=== PATIENT | male | born 1960 | race Caucasian/White ===

== ENCOUNTER → 2018-09-30 | Outpatient (CLI) | payer OTHER, SELFPAY ==
--- NOTE | 2018-10-04 02:31 | PCVCIMAG ---
APPROVED REPORT Study performed: 09/30/2018 15:45:09 Exam: Stress Echocardiogram Indication: Chest pain Patient Location: Echo lab Stress Nurse: Akilah Pringle RN Status: routine Ht: 5 ft 5 in HR: 67 bpm BP: 126/82 mmHg Rhythm: NSR Medical History Exercise History: Physically active Procedure The patient underwent an Exercise Stress Test using the [place] Protocol. Blood pressure, heart rate, and EKG were monitored. An Echocardiogram was performed by claim technician in four stages in quad fashion. At peak stress, four selected images were obtained and placed side by side with resting images for comparison. Stress Test Details Stress Test: Exercise stress testing was performed using a [place] protocol. HR Resting HR: 67 bpmMax Heart Rate (APMHR): 164 bpm Max HR Achieved: 184 bpmTarget HR (85% APMHR): 139 bpm % of APMHR: 112 Recovery HR: 104 bpm HR response to stress: Normal HR response to stress BP Resting BP: 126/82 mmHg Max BP: 164/80 mmHg Recovery BP: 142/70 mmHg BP response to stress: Normal blood pressure response to stress. ECG Resting ECG: Sinus Rhythm Stress ECG: Sinus Rhythm Arrhythmia: Occasional PVC's Recovery ECG: Sinus Rhythm Clinical Reason for Termination: Maximal effort Exercise duration: 12 min 29 sec Highest Stage Achieved: Stage 5: 5.0 mph at 18% grade. Exercise capacity: 15.20 METs Overall Exercise Capacity for Age: Good Stress ECG Conclusion ECG: Non-ischemic Clinical: Non-ischemic 1. Subjectively negative for ischemia 2. Electrocardiographically negative for ischemia Pre-Stress Echo The resting Echocardiogram showed normal left ventricular contractility with an estimated Ejection Fraction of about >55%. Normal wall motion in all segments on baseline images. Post-Stress Echo The stress Echocardiogram showed normal left ventricular contractility with an estimated Ejection Fraction of about 60-65%. Normal augmentation of wall motion in all segments on post stress images. Clinical No clinical or ECG evidence for ischemia. Conclusion Clinical Response: Non-ischemic Exercise Capacity: Superior Stress ECG Response: Non-ischemic Stress Echo Images: Non-ischemic The left ventricle is normal in size and wall thickness in both the rest and stress images. 1. Low risk study Other Information Study Quality: Good <Conclusion> The left ventricle is normal in size and wall thickness in both the rest and stress images. 1. Low risk study
== END | disposition home or self-care (01) ==
LOC: PCVCIMAG 14:51
PROVIDERS: ATTEND Internal Medicine
DX: R07.89 Other chest pain (principal)
CPT/HCPCS: 93325; 93351